=== PATIENT | female | born 1990 | race Caucasian/White ===

== ENCOUNTER 2018-11-03 19:23 | Emergency (ER) | payer BC ==
[2018-11-03 19:47] VITALS: BP 136/71
--- NOTE | 2018-11-12 17:21 | UC ---
Back Pain HPI - HPI Summary HPI Summary: Patient was seen for urinary tract infection in [place] and treated with Cefdinir. Symptoms totally resolved and then she states she started having some left-sided back pain and she was concerned she might have another urinary tract infection. She does have chronic back pain. - History of Current Complaint Chief Complaint: UCBackPain Stated Complaint: LOW BACK PAIN Time Seen by Provider: 11/03/18 19:36 Hx Obtained From: Patient Hx Last Menstrual Period: has mirena ?: No Onset/Duration: Gradual Onset, Other Timing: Intermittent - Chronic back pain. Severity Initially: Mild Severity Currently: Mild Pain Intensity: 4 Pain Scale Used: 0-10 Numeric Back Pain: Is Diffuse Character: Aching Aggravating Factor(s): Movement, Bending Alleviating Factor(s): Rest Associated Signs And Symptoms: Positive: Negative - Allergies/Home Medications Allergies/Adverse Reactions: Allergies Allergy/AdvReac Type Severity Reaction Status Date / Time Penicillins Allergy Unknown unsure of Verified 11/03/18 19:47 reaction Home Medications: Home Medications Cyclobenzaprine TAB* [Flexeril 10 MG TAB*] 10 mg PO BID PRN 11/03/18 [History Confirmed 11/03/18] Levonorgestrel (Iud) [Mirena IUD] 1 dose DAILY 11/03/18 [History Confirmed 11/03] Naproxen [Naprosyn 500 mg tab] 1 tab BID PRN 11/03/18 [History Confirmed ] PMH/Surg Hx/FS Hx/Imm Hx Previously Healthy: Yes Other GI/ History: patient has no burning on urination or any other signs of UTI. - Surgical History Surgical History: None - Family History Known Family History: Positive: Non-Contributory - Social History Alcohol Use: Weekly Substance Use Type: None Smoking Status (MU): Light Every Day Tobacco Smoker Type: Cigarettes Amount Used/How Often: 6-10 cigs daily Review of Systems All Other Systems Reviewed And Are Negative: Yes Musculoskeletal: Positive: Other: - Chronic low back pain which is no worse today than it has been and patient wanted to check for UTI since last and she had a urinary tract infection she had some low back pain. Is Patient Immunocompromised?: No Physical Exam Triage Information Reviewed: Yes Appearance: Well-Appearing, No Pain Distress, Well-Nourished Vital Signs: Initial Vital Signs Temp 97.9 F 11/03/18 19:39 Pulse 69 11/03/18 19:39 Resp 16 11/03/18 19:39 BP 136/71 11/03/18 19:39 Pulse Ox 100 11/03/18 19:39 Vital Signs Reviewed: Yes Respiratory: Positive: Lungs clear, Normal breath sounds, No respiratory distress, No accessory muscle use Cardiovascular: Positive: RRR, No Murmur, Pulses Normal, Brisk Capillary Refill Abdomen Description: Positive: Nontender, No Organomegaly, Soft Bowel Sounds: Positive: Present Musculoskeletal: Positive: Strength Intact, ROM Intact - Negative straight leg raise. Neurological: Positive: Alert, Muscle Tone Normal Back Pain Course/Dx - Course Course Of Treatment: The patient's urinalysis was negative and she is not presently . I believe this is her chronic back pain and she can take Motrin as directed and follow-up with her primary care provider as needed. She is to avoid lifting, pushing pulling twisting or bending. - Differential Dx/Diagnosis Provider Diagnosis: Chronic low back pain Discharge - Sign-Out/Discharge Documenting (check all that apply): Patient Departure All imaging exams completed and their final reports reviewed: No Studies - Discharge Plan Condition: Good Disposition: HOME Patient Education Materials: Chronic Back Pain (DC) Referrals: No Primary Care Phys,NOPCP [Primary Care Provider] - Additional Instructions: Follow-up with your pediatric sports medicine specialist as scheduled. You may take Motrin every 8 hours for pain and apply heat to the sore areas. Follow up with your scheduled appointment tomorrow for the sonogram. - Billing Disposition and Condition Condition: GOOD Disposition: Home
== END 2018-11-03 20:12 | disposition home or self-care (01) ==
LOC: UCCORT 19:23
DX: G89.29 Other chronic pain (principal); M54.5 Low back pain; Z88.0 Allergy status to penicillin; F17.210 Nicotine dependence, cigarettes, uncomplicated
CPT/HCPCS: 81003; 84702; 99201; G0463